=== PATIENT | female | born 1975 | race Caucasian/White ===

== ENCOUNTER 2017-06-20 18:18 | Emergency (ER) | payer SELFPAY ==
[~2017-06-20] VITALS: Ht 160 cm; Wt 75.0 kg
[2017-06-20] MEDS ORDERED: ACETAMINOPHEN 325 MG TABLET PO ONE (19:45)
[2017-06-20 19:46] VITALS: BP 125/56
[2017-06-20 20:24] LABS: APPEARANCE,URINE CLEAR (CLEAR); BILIRUBIN,URINE NEGATIVE (NEGATIVE); GLUCOSE, URINE (UA) NEGATIVE (NEGATIVE); KETONES,URINE NEGATIVE (NEGATIVE); LEUKOCYTE ESTERASE ,URINE NEGATIVE (NEGATIVE); NITRATE,URINE NEGATIVE (NEGATIVE); OCCULT BLOOD,URINE NEGATIVE (NEGATIVE); PROTEIN,URINE NEGATIVE (NEGATIVE); UROBILINOGEN,URINE 0.2 mg/dL (<=1.0)
[2017-06-20] MEDS ORDERED: CefTRIAXone SODIUM 1 GM/VIAL IM ONE (22:00)
[2017-06-20] MEDS ORDERED: LIDOCAINE HCL/PF 1% 2 ML VIAL IM ONE (22:00)
[2017-06-20] MEDS ORDERED: IBUPROFEN 600 MG TABLET PO ONE (22:00)
== END 2017-06-20 22:21 | disposition home or self-care (01) ==
LOC: EMS 18:18
DX: J02.0 Streptococcal pharyngitis (principal)
CPT/HCPCS: 81003; 87430; 96372; 99284; J0696; J3490